=== PATIENT | male | born 1990 | race Two or more races ===

== ENCOUNTER 2016-05-20 23:03 | Emergency (ER) | payer BC, OTHER ==
[~2016-05-20] VITALS: Ht 188 cm; Wt 113.0 kg
[2016-05-20 23:08] VITALS: BP 141/115
== END 2016-05-21 | disposition left against medical advice (07) ==
LOC: ER 23:24
DX: M79.671 Pain in right foot (principal); Z88.6 Allergy status to analgesic agent